=== PATIENT | female | born 1975 | race Caucasian/White ===

== ENCOUNTER 2022-03-29 09:49 | Emergency (ER) | payer OTHER ==
[~2022-03-29] VITALS: Ht 167.6 cm; Wt 77.0 kg
[2022-03-29 09:59] VITALS: BP 130/85
[2022-03-29] MEDS ORDERED: OXYMETAZOLINE HCL NASAL SPRAY 15ML BOTHNSTRLS STA (10:23)
[2022-03-29] MEDS ORDERED: LIDOCAINE HCL/PF 1% 10 MG/ML 5ML VIAL INFIL ONE (10:30)
[2022-03-29] MEDS ORDERED: ACETAMINOPHEN 325MG TABLET PO ONE (10:30)
[2022-03-29] MEDS ORDERED: TETANUS, DIPHTHERIA, PERTUSSIS VAC/PF 0.5ML (>10YR OLD) IM ONE ×2 (10:30→13:30)
[2022-03-29] MEDS ORDERED: LIDOCAINE HCL/EPINEPHRINE 1%-EPI 1:100,000 20 ML VIAL INFIL ONE (10:30)
[2022-03-29] MEDS ORDERED: LIDOCAINE HCL/EPINEPHRINE 1%-EPI 1:100,000 10 ML VIAL INFIL ONE (10:45)
[2022-03-29] MEDS ORDERED: HYDROCODONE/ACETAMINOPHEN 5/325MG TABLET PO ONE ×2 (11:15→13:00)
[2022-03-29] MEDS ORDERED: BACITRACIN ZINC OINT UDPKT TOP ONE (13:00)
[2022-03-29] MEDS ORDERED: HYDR-4001 MT ×2 (13:08→13:11)
[2022-03-29] MEDS ORDERED: AMOX1TAB16 MT (13:08)
[2022-03-29] MEDS ORDERED: OXYM30SP26 BOTHNSTRLS (13:08)
== END 2022-03-29 13:55 | disposition home or self-care (01) ==
LOC: ER 09:49
DX: S02.2XXB Fracture of nasal bones, initial encounter for open fracture (principal); S01.112A Laceration without foreign body of left eyelid and periocular area, initial encounter; W01.118A Fall on same level from slipping, tripping and stumbling with subsequent striking against other sharp object, initial encounter; Y93.89 Activity, other specified; Y92.233 Cafeteria of hospital as the place of occurrence of the external cause; Y99.0 Civilian activity done for income or pay
CPT/HCPCS: 12013; 70450; 70486; 90471; 90715; 99285; J3490; Z7610